=== PATIENT | female | born 1960 | race Caucasian/White ===

== ENCOUNTER 2016-06-01 12:32 | Day surgery (SDC) | payer MEDICAID ==
[2016-06-01] MEDS ORDERED: Lactated Ringer's 500 ML IV ONE (13:10)
[2016-06-01] MEDS ORDERED: Propofol 10 mg/ml Inj (20 ML) ONE (13:39)
[2016-06-01 14:14] VITALS: TEMP 98
[2016-06-01 14:28] VITALS: BP 119/68; PULSE 81; RESP 17; O2SAT 100
== END 2016-06-01 17:00 | disposition home or self-care (01) ==
LOC: H.ENDO 12:32
PROVIDERS: ATTEND Internal Medicine Gastroenterology
DX: Z12.11 Encounter for screening for malignant neoplasm of colon (principal); D12.4 Benign neoplasm of descending colon